=== PATIENT | female | born 1935 | race Caucasian/White ===

== ENCOUNTER 2016-08-27 19:37 | Emergency (ER) | payer MEDICARE, BC ==
[2016-08-27] MEDS ORDERED: Sulfamethoxazole/Trimethoprim 800-160 MG Tab ONE (20:00)
--- NOTE | 2016-08-27 20:57 | EDM.PDOC ---
ED HPI GENERAL MEDICAL PROBLEM - General Chief Complaint: General Stated Complaint: BLOOD IN URINE Time Seen by Provider: 08/27/16 19:45 Source of Information: Reports: Patient History Limitations: Reports: No Limitations - History of Present Illness INITIAL COMMENTS - FREE TEXT/NARRATIVE: According to patient She has been had back pain 3 days ago, and yesterday she noticed some blood in the urine on 3 different occasions. The urine has cleared and back pain has improved. But last night she hade episodes of dysuria and nocturia. She claims he has been drinking fluids and cranberry juice, but still continue to have burning with urination. No fever or chills. No nausea or vomiting. No back pain today. No other complaints. Onset Date: 08/24/16 Severity: Mild Improves with: Reports: None Worsens with: Reports: None Associated Symptoms: Denies: Confusion, Chest Pain, Cough, Fever/Chills, Nausea/ Vomiting, Rash, Seizure, Shortness of Breath, Weakness ED ROS GENERAL - Review of Systems Review Of Systems: See Below Constitutional: Denies: Fever, Chills HEENT: Denies: Rhinitis, Sinus Problem, Throat Pain Respiratory: Denies: Cough, Sputum Cardiovascular: Denies: Chest Pain GI/Abdominal: Denies: Abdominal Pain, Nausea, Vomiting : Reports: Dysuria, Frequency, Hematuria. Denies: Discharge, Flank Pain, Incontinence Musculoskeletal: Denies: Neck Pain, Joint Pain, Joint Swelling Skin: Denies: Pruritis, Rash Neurological: Denies: Confusion, Dizziness, Headache ED EXAM, GENERAL - Physical Exam Exam: See Below Exam Limited By: No Limitations General Appearance: Alert, WD/WN, No Apparent Distress Eye Exam: Bilateral Eye: EOMI, PERRL Ears: Normal External Exam, Normal Canal, Hearing Grossly Normal, Normal TMs Ear Exam: Bilateral Ear: Auricle Normal, Canal Normal, TM normal Nose: Normal Inspection, Normal Mucosa, No Blood Throat/Mouth: Normal Inspection, Normal Lips, Normal Teeth, Normal Gums, Normal Oropharynx, Normal Voice, No Airway Compromise Head: Atraumatic, Normocephalic Neck: Normal Inspection, Supple, Non-Tender, Full Range of Motion Respiratory/Chest: No Respiratory Distress, Lungs Clear, Normal Breath Sounds, No Accessory Muscle Use, Chest Non-Tender Cardiovascular: Normal Peripheral Pulses, Regular Rate, Rhythm, No Edema, No Gallop, No JVD, No Murmur, No Rub GI/Abdominal: Normal Bowel Sounds, Soft, Non-Tender, No Organomegaly, No Distention, No Abnormal Bruit, No Mass Extremities: Normal Inspection, Normal Range of Motion, Non-Tender, Normal Capillary Refill, No Pedal Edema Neurological: Alert, Oriented, CN II-XII Intact, Normal Cognition, Normal Gait, Normal Reflexes, No Motor/Sensory Deficits Course - Vital Signs Text/Narrative:: Pt's UA shows + leucose estase. her urine micro shows 0-5 RBCs, but clumps of WBCs. Pt reassured that she has acute UTI. advised plenty of fluids and 1-2 glass of cranberry juice. Started her on bactrim DS 1 po BID for 1 wk. Urine culture sent, will call with test results. Advised to followup with her Primary care provider if her symptoms worsen. - Orders/Labs/Meds Labs: Laboratory Tests 08/27/16 Range/Units 20:03 Urine Color Yellow Urine Appearance Slightly cloudy (CLEAR) Urine pH 5.0 (5.0-8.0) Ur Specific [place] <= 1.005 (1.003-1.030) Urine Protein Negative (NEGATIVE) mg/dL Urine Glucose (UA) Negative (NEGATIVE) mg/dL Urine Ketones Negative (NEGATIVE) mg/dL Urine Occult Blood Moderate H (NEGATIVE) Urine Nitrite Negative (NEGATIVE) Urine Bilirubin Negative (NEGATIVE) Urine Urobilinogen 0.2 (0.2-1.0) E.U./dL Ur Leukocyte Esterase Moderate H (NEGATIVE) Urine RBC 0-5 H /HPF Urine WBC Semi-packed H /HPF Urine WBC Clumps Occasional /HPF Ur Squamous Epith Cells Moderate /HPF Urine Bacteria Few /HPF Departure - Departure Time of Disposition: 20:45 Disposition: Home, Self-Care 01 Condition: Good Clinical Impression: UTI (urinary tract infection) - Discharge Information Instructions: Urinary Tract Infection, Adult, [id number], Sulfamethoxazole; Trimethoprim, [id number]-[id number] tablets Referrals: PCP,None [Primary Care Provider] - Forms: ED Department Discharge Additional Instructions: - Drink more fluids, cranberry juice and other. - Bactrim 800/160 mg one tablet 2 times a day for 7 days, (do not take the remaining tablets) - follow up in the clinic next week, or if you've already been home, you may call the hospital on friday and ask for your doctor. - Problem List & Annotations (1) UTI (urinary tract infection) SNOMED Code(s): 03463268 Code(s): N39.0 - URINARY TRACT INFECTION, SITE NOT SPECIFIED Status: Acute Current Visit: Yes - Problem List Review Problem List Initiated/Reviewed/Updated: Yes - Assessment/Plan Assessment:: UTI Plan: Pt's UA shows + leucose estase. her urine micro shows 0-5 RBCs, but clumps of WBCs. Pt reassured that she has acute UTI. advised plenty of fluids and 1-2 glass of cranberry juice. Started her on bactrim DS 1 po BID for 1 wk. Urine culture sent, will call with test results. Advised to followup with her Primary care provider if her symptoms worsen.
[2016-08-28 03:35] VITALS: BP 147/87
== END 2016-08-27 20:47 | disposition home or self-care (01) ==
LOC: LB.ED 19:37
DX: N39.0 Urinary tract infection, site not specified (principal)
CPT/HCPCS: 81001; 87086; 99283; A9270